=== PATIENT | female | born 1985 ===

== ENCOUNTER → 2023-04-21 | Outpatient (CLI) | payer OTHER ==
[2023-04-22 09:55] LABS: Candida species (DNA Probe) Negative (NEGATIVE); G. vaginalis (DNA Probe) Negative (NEGATIVE); T. vaginalis (DNA Probe) Negative (NEGATIVE)
== END ==
LOC: LAB SHORT 13:34 → LAB 13:34
PROVIDERS: Obstetrics & Gynecology
DX: N76.0 Acute vaginitis (principal)
CPT/HCPCS: 87480; 87510; 87660